=== PATIENT | female | born 1990 | race Caucasian/White ===

== ENCOUNTER 2017-02-24 03:05 | Emergency (ER) | payer BC ==
[2017-02-24] MEDS ORDERED: Pantoprazole IV* 40 MG IV ONE (03:33)
[2017-02-24] MEDS ORDERED: Ondansetron INJ* 2 MG/ML VIAL IV ONE (03:33)
[2017-02-24] MEDS ORDERED: NS 0.9% 1000 ML* 1,000 ML IV ONE (03:33)
[2017-02-24 04:04] LABS: Hematocrit 38 % (35-47); Hemoglobin 12.8 g/dl (12.0-16.0); Mean Corpuscular HGB Conc 34 g/dl (31-36); Mean Corpuscular Hemoglobin 29 pg (27-31); Mean Corpuscular Volume 86 fL (80-97); Mean Platelet Volume 10 um3 (7.4-10.4); Red Cell Distribution Width 14 % (10.5-15); White Blood Count 10.2 10^3/ul (3.5-10.8)
[2017-02-24 04:07] LABS: ALT 13 U/L (7-52); AST 12 U/L (13-39); Albumin 4.5 g/dL (3.2-5.2); Alkaline Phosphatase 52 U/L (34-104); Anion Gap 8 mmol/L (2-11); BUN/Creatinine Ratio 26.8 (8-20); Blood Urea Nitrogen 19 mg/dL (6-24); CO2 Carbon Dioxide 27 mmol/L (22-32); Calcium 9.8 mg/dL (8.6-10.3); Chloride 102 mmol/L (101-111); EGFR Non-African American 98.7 (>60); Globulin 3.3 g/dL (2-4); Glucose 173 mg/dL (70-100); Lipase 15 U/L (11.0-82.0); Potassium 4.1 mmol/L (3.5-5.0); Sodium 137 mmol/L (133-145); Total Protein 7.8 g/dL (6.4-8.9)
[2017-02-24] MEDS ORDERED: Iohexol 300* (CONTRAST) 10 ML SDV IV ONE (04:19)
[2017-02-24 05:38] LABS: Urine Bilirubin Negative (Negative); Urine Glucose Negative (Negative); Urine Nitrite Negative (Negative)
[2017-02-24 05:58] VITALS: BP 89/55
--- NOTE | 2017-02-24 09:06 | RAD ---
INDICATION: Heartburn worse than normal. COMPARISON: February 24, [address] TECHNIQUE: Dual energy PA and routine lateral views of the chest were obtained. REPORT: Clear lungs and pleural spaces. Negative for pneumothorax. The heart, pulmonary vasculature, and mediastinal contours are unremarkable. Negative for free air beneath the diaphragm. Unremarkable osseous structures and soft tissue contours. IMPRESSION: No acute cardiopulmonary process evident.
--- NOTE | 2017-02-24 09:17 | RAD ---
INDICATION: RIGHT upper and lower quadrant abdominal pain. COMPARISON: No relevant prior exams available on the [facility] [place] for comparison. TECHNIQUE: Multidetector CT images were obtained from the lung bases to the ischial tuberosities with 100 mL Omnipaque 300 IV and oral contrast. Multiplanar reformation. REPORT: Unremarkable visualized inferior thorax. Decreased density of the liver consistent with fatty infiltration with focal sparing at the gallbladder fossa. Mildly distended gallbladder. Negative for biliary dilatation. Unremarkable pancreas and spleen. Negative for CT abnormality of the upper GI, small bowel, infra cecal appendix, colon. Small volume of stool in the colon without significant rectal distention. Negative for ascites, free air, hernias. Normal adrenal glands. Unremarkable kidneys with symmetric nephrograms and pyelograms. Unremarkable ureters and largely decompressed urinary bladder. Unremarkable anteverted uterus and adnexal regions. Negative for lymphadenopathy. Normal diameter abdominal aorta and iliac arteries. Physiologic distention of the IVC. Multilevel Schmorl node endplate herniations noted. No suspicious focal osseous lesions evident. IMPRESSION: 1. Fatty infiltration of the liver. 2. Mildly distended gallbladder without additional CT abnormality. If there is clinical concern for gallbladder pathology consider ultrasound for further assessment. 3. Normal appendix documented. No pathologic process of the alimentary tract evident.
--- NOTE | 2017-02-26 02:45 | ED ---
Aggie Billy Edward, scribed for Austin Ray on 02/24/17 at 0321 . Complex/Multi-Sys Presentation - HPI Summary HPI Summary: 27 y/o female presents to the ED c/o ABD pain described as GERD-like starting at 19:00 yesterday. The pain is located in the epigastric region. The pt c/o of a sharp CP in the mid-sternal region; this is typical when the pt has episodes of GERD. The symptoms are not aggravated or alleviated with anything. Pt took Tums earlier last night to treat her symptoms. Pt has also vomited 3x in the past two days. Associated sx: nausea. Pt also c/o of chronic back pain. PMHx GERD, is prescribed zantac BID, took it yesterday. - History Of Current Complaint Chief Complaint: EDNauseaVomitDiarrh Hx Obtained From: Patient Onset/Duration: Lasting Days, Still Present Location: Pain At: - epigastric region Character: Sharp - CP Associated Signs And Symptoms: Positive: Chest Pain, Nausea, Vomiting, Abdominal Pain, Back Pain - chronic - Allergies/Home Medications Allergies/Adverse Reactions: Allergies Allergy/AdvReac Type Severity Reaction Status Date / Time Sulfa Antibiotics Allergy Unknown Unknown Verified 02/24/17 03:17 Reaction Details PMH/Surg Hx/FS Hx/Imm Hx Previously Healthy: No GI History: Reports: Hx Gastroesophageal Reflux Disease Musculoskeletal History: Reports: Hx Scoliosis Psychiatric History: Denies: Other Psychiatric Issues/Disorders Infectious Disease History: No Infectious Disease History: Denies: Traveled Outside the [place] in Last 30 Days - Family History Known Family History: Negative: Cardiac Disease, Hypertension, Diabetes - Social History Lives: With Family Alcohol Use: None Hx Substance Use: No Substance Use Type: Reports: None Hx Tobacco Use: No Smoking Status (MU): Never Smoked Tobacco Review of Systems Constitutional: Negative Eyes: Negative ENT: Negative Positive: Chest Pain - sharp Respiratory: Negative Positive: Abdominal Pain - epigastric, Vomiting - 3x, Nausea Genitourinary: Negative Positive: Arthralgia - chronic back pain Skin: Negative Neurological: Negative Psychological: Normal All Other Systems Reviewed And Are Negative: Yes Physical Exam Triage Information Reviewed: Yes Vital Signs On Initial Exam: Initial Vitals Temp Pulse Resp BP Pulse Ox 98.4 F 67 14 105/77 99 02/24/17 03:12 02/24/17 03:12 02/24/17 03:12 02/24/17 03:12 02/24/17 03:12 Vital Signs Reviewed: Yes Appearance: Positive: Well-Appearing, No Pain Distress Skin: Positive: Warm, Skin Color Reflects Adequate Perfusion, Dry Head/Face: Positive: Normal Head/Face Inspection Eyes: Positive: EOMI, WILIAN Neck: Positive: Supple, Nontender Respiratory/Lung Sounds: Positive: Clear to Auscultation, Breath Sounds Present Cardiovascular: Positive: RRR, Pulses are Symmetrical in both Upper and Lower Extremities Abdomen Description: Positive: Soft, Other: - Tender @ RUQ epigastric region Bowel Sounds: Positive: Present Musculoskeletal: Positive: Normal, Strength/ROM Intact Neurological: Positive: Normal, Sensory/Motor Intact, Alert, Oriented to Person Place, Time Diagnostics - Vital Signs Vital Signs Temp Pulse Resp BP Pulse Ox 02/24/17 03:12 98.4 F 67 14 105/77 99 - Laboratory Result Diagrams: 02/24/17 03:40 02/24/17 03:40 Lab Statement: Any lab studies that have been ordered have been reviewed, and results considered in the medical decision making process. - Radiology CXR Xray Interpretation: No Acute Changes Radiology Interpretation Completed By: ED Physician - CT ABD/PEL CT CT Interpretation: No Acute Changes - NO BOWEL OBSTRUCTION, FREE AIR OR FREE FLUID. NORMAL APPENDIX VISUALIZED. NEGATIVE FOR COLITIS OR DIVERTICULITIS. GALLBLADDER IS DISTENDED. UNCERTAIN IF THERE ARE GALLSTONES. US IS MORE SENSITIVE FOR ChOLELITHISASIS/CHOLECYSTITIS. NORMAL LIVER, SPLEEN, PANCREAS, ADRENAL GLANDS, AND KIDNEYS URINARY TRACTS IN URINARY BLADDER. NO OTHER ACUTE INTRA-ABDOMINAL ABNORMALITIES. CT Interpretation Completed By: Radiologist - EKG 1 EKG Interpretation: 04:07 - SINUS RHYTHM @ 72 BPM. NO ACUTE CHANGES Re-Evaluation - Re-Evaluation 1 Re-Evaluation Time: 05:41 Comment: Discuss lab and test results. discuss plan of care Complex Multi-Symp Course/Dx Assessment/Plan: 27 y/o female presents to the ED c/o ABD pain described as GERD -like starting a couple of days ago. The pain is located in the epigastric region. The pt c/o of a sharp CP in the epigastrium; this is typical when the pt has episodes of GERD. Pt has vomited 3x in the past few days. Associated sx: nausea. Pt also c/o of chronic back pain. PMHx frequent GERD. EKG @ 04:07 - SINUS RHYTHM @ 72 BPM. NO ACUTE CHANGES. CXR NEGATIVE. ABD/PEL CT NEGATIVE FOR ACUTE PATHOLOGY. Test results without significant abnormalities. UA (-) UTI. ABD /PEL CT showed distended gallbladder and recommended US but pt does not want to wait till the morning to get an US. Pt will f/u with PCP for US. Pt will return to the ED if pain gets worse. Pt will be d/c with protonix. Most likely pt has gastritis or GERD. - Diagnoses Provider Diagnoses: Abdominal pain, GERD (gastroesophageal reflux disease), Gastritis Discharge - Discharge Plan Condition: Stable Disposition: HOME Patient Education Materials: Gastritis (ED), Gastroesophageal Reflux Disease ( ED), Abdominal Pain (ED) Referrals: [facility] [place] PHYSICIAN REFERRAL [Outside] - 3 Days (PLEASE F/U IN 2-3 DAYS) The documentation as recorded by the Aggie caputo Edward accurately reflects the service I personally performed and the decisions made by , uAstin Ray.
== END 2017-02-24 05:58 | disposition home or self-care (01) ==
LOC: ED 03:05
DX: R10.13 Epigastric pain (principal); K29.70 Gastritis, unspecified, without bleeding; M54.9 Dorsalgia, unspecified
CPT/HCPCS: 36415; 71020; 74177; 80053; 81003; 83690; 84484; 84702; 85025; 93005; 99283; J2405; Q9967

== ENCOUNTER 2017-06-07 13:00 | Emergency (ER) | payer BC ==
[2017-06-07 16:36] LABS: ABS Basophils 0 10^3/ul (0-0.2); ABS Eosinophils 0 10^3/ul (0-0.6); ABS Lymphocytes 4.1 10^3/ul (1.0-4.8); ABS Monocytes 0.6 10^3/ul (0-0.8); ABS Nucleated RBC 0 10^3/ul; Eosinophil % 0.4 % (0-6); Hematocrit 39 % (35-47); Hemoglobin 13.5 g/dl (12.0-16.0); Lymphocyte % 38.4 % (25-47); Mean Corpuscular HGB Conc 34 g/dl (31-36); Mean Corpuscular Hemoglobin 29 pg (27-31); Mean Corpuscular Volume 85 fL (80-97); Mean Platelet Volume 10 um3 (7.4-10.4); Nucleated Red Blood Cells % 0.1; Platelet Count 302 10^3/ul (150-450); Red Cell Distribution Width 14 % (10.5-15); White Blood Count 10.7 10^3/ul (3.5-10.8)
[2017-06-07 16:59] LABS: EGFR Non-African American 103.8 (>60)
--- NOTE | 2017-06-07 17:11 | RAD ---
INDICATION: Right upper quadrant pain. COMPARISON: Comparison is made with a prior CT of the abdomen and pelvis from February 24, 2017. TECHNIQUE: Multiple real-time images of the right upper quadrant were obtained. FINDINGS: There are multiple gallstones present. No gallbladder wall thickening or pericholecystic fluid is present. No positive sonographic Stratton sign was present. No intra or extrahepatic ductal distention is present. The common bile duct measured 0.4 cm in diameter. The liver is normal in size without significant focal abnormality. The pancreas is partially obscured by overlying bowel gas. The right kidney is normal in size without evidence for hydronephrosis. IMPRESSION: CHOLELITHIASIS WITHOUT EVIDENCE FOR ACUTE CHOLECYSTITIS.
[2017-06-07 18:08] VITALS: BP 103/62
--- NOTE | 2017-06-09 12:42 | ED ---
Ricky Billy Julia, scribed for Anam López MD on 06/07/17 at 1714 . Abdominal Pain/Female - HPI Summary HPI Summary: This patient is a 27 year old F presenting to [facility] with a chief complaint of waxing and waning RUQ and epigastric abdominal pain for the past 6 days. Patient reports nausea. Patient denies fever, sweats, or chills. The patient rates the pain 3/10 in severity. Symptoms aggravated by eating. Patient has had previous symptoms but recent pain is worse than usual, but is feeling better now. She has spoken with Dr. Toney about requesting to have her gallbladder removed. - History of Current Complaint Chief Complaint: EDAbdPain Stated Complaint: ABD PAIN Time Seen by Provider: 06/07/17 16:08 Hx Obtained From: Patient Onset/Duration: Lasting Days Timing: Constant Severity Initially: Moderate Severity Currently: Mild Pain Intensity: 3 Pain Scale Used: 0-10 Numeric Location: Discrete At: RUQ, Epigastric Aggravating Factor(s): Food Associated Signs and Symptoms: Positive: Nausea Allergies/Adverse Reactions: Allergies Allergy/AdvReac Type Severity Reaction Status Date / Time MS Sulfa Antibiotics Allergy Unknown Unknown Verified 02/24/17 03:17 [Sulfa Antibiotics] Reaction Details PMH/Surg Hx/FS Hx/Imm Hx Endocrine/Hematology History: Denies: Hx Diabetes Cardiovascular History: Denies: Hx Hypertension GI History: Reports: Hx Gastroesophageal Reflux Disease History: Denies: Hx Dialysis, Hx Renal Disease Musculoskeletal History: Reports: Hx Scoliosis Psychiatric History: Denies: Other Psychiatric Issues/Disorders - Immunization History Date of Tetanus Vaccine: unk Date of Influenza Vaccine: none Infectious Disease History: No Infectious Disease History: Denies: Traveled Outside the [place] in Last 30 Days - Family History Known Family History: Negative: Cardiac Disease, Hypertension, Diabetes - Social History Alcohol Use: None Hx Substance Use: No Substance Use Type: Reports: None Hx Tobacco Use: No Smoking Status (MU): Never Smoked Tobacco Review of Systems Negative: Fever, Chills Negative: Erythema Negative: Sore Throat Negative: Chest Pain Negative: Shortness Of Breath, Cough Positive: Abdominal Pain, Nausea. Negative: Vomiting Negative: dysuria, hematuria Negative: Myalgia, Edema Negative: Rash Neurological: Negative - dizziness All Other Systems Reviewed And Are Negative: Yes Physical Exam - Summary Physical Exam Summary: Constitutional: Well-developed, Well-nourished, Alert. (-) Distressed Skin: Warm, Dry HENT: Normocephalic; Atraumatic Eyes: Conjunctiva normal Neck: Musculoskeletal ROM normal neck. (-) JVD, (-) Stridor, (-) Tracheal deviation Cardio: Rhythm regular, rate normal, Heart sounds normal; Intact distal pulses; The pedal pulses are 2+ and symmetric. Radial pulses are 2+ and symmetric. (-) Murmur Pulmonary/Chest wall: Effort normal. (-) Respiratory distress, (-) Wheezes, (-) Rales Abd: Soft, (+) mild RUQTenderness, (-) Distension, (-) Guarding, (-) Rebound Musculoskeletal: (-) Edema Lymph: (-) Cervical adenopathy Neuro: Alert, Oriented x3 Psych: Mood and affect Normal Triage Information Reviewed: Yes Vital Signs On Initial Exam: Initial Vitals Temp Pulse Resp BP Pulse Ox 98.8 F 80 18 111/70 100 06/07/17 13:17 06/07/17 13:17 06/07/17 13:17 06/07/17 13:17 06/07/17 13:17 Vital Signs Reviewed: Yes Diagnostics - Vital Signs Vital Signs Temp Pulse Resp BP Pulse Ox 06/07/17 16:10 114/60 06/07/17 13:17 98.8 F 80 18 111/70 100 - Laboratory Result Diagrams: 06/07/17 16:10 06/07/17 16:10 Lab Statement: Any lab studies that have been ordered have been reviewed, and results considered in the medical decision making process. - Additional Comments Diagnostic Additional Comments: Gallbladder US reveals: CHOLELITHIASIS WITHOUT EVIDENCE FOR ACUTE CHOLECYSTITIS. ED Physician has reviewed this report. Abdominal Pain Fem Course/Dx - Course Course Of Treatment: Patient presents with waxing and waning RUQ and epigastric abdominal pain for the past 6 days. Patient reports nausea. Patient denies fever , sweats, or chills. Symptoms aggravated by eating. Abdominal US reveals cholelythisis. Pt is dischared with dx of gallstones and is instructed to follow up with Dr. Toney in the next 2-3 days. - Diagnoses Provider Diagnoses: Gallstones Discharge - Discharge Plan Condition: Stable Disposition: HOME Prescriptions: traMADol TAB* [Ultram*] 50 mg PO Q6HR PRN #12 tab MDD 4 PRN Reason: Pain - Moderate To Severe Patient Education Materials: Gallstones (ED), Low Fat Diet (ED) Referrals: Leroy Toney MD [Medical Doctor] - 2 Days Additional Instructions: RETURN TO THE EMERGENCY DEPARTMENT FOR CHANGING OR WORSENING SYMPTOMS. The documentation as recorded by the Ricky caputo Julia accurately reflects the service I personally performed and the decisions made by , Anam López MD.
== END 2017-06-07 18:04 | disposition home or self-care (01) ==
LOC: ED 13:00
DX: K80.20 Calculus of gallbladder without cholecystitis without obstruction (principal); Z88.1 Allergy status to other antibiotic agents; Z88.2 Allergy status to sulfonamides
CPT/HCPCS: 36415; 76705; 80053; 83605; 83690; 85025; 86140; 99283

== ENCOUNTER 2017-06-20 13:15 | Day surgery (SDC) | payer BC ==
[~2017-06-20 13:15] MED LIST: Buffered Lidocaine 0.9% SYRIN* 5 ML/SYR SYRINGE INTRADERM ONE; DiMENhydriNATE IV* 50 MG/ML VIAL IV PUSH PRN; Famotidine IV* 10 MG/ML 2 ML (20 mg) IV ONE; Morphine INJ* 2 MG/ML 1 ML CARPUJECT IV PRN; Naloxone* 0.4 MG/ML 1 ML VIAL IV PRN; PROCHLORPERAZINE INJ 5 MG/ML 2 ML VIAL IV PRN; Scopolamine 1.5 mg* PATCH TRANSDERM PRN; fentaNYL* 50 MCG/ML 2 ML VIAL (100 MCG VIAL) IV PRN; oxyCODONE/Acetamin 5/325 MG* TAB PO PRN
[2017-06-20] MEDS ORDERED: ceFAZolin 2 GM in 100 MLS NS (*) BAG IVPB ONE (13:25)
[2017-06-20] MEDS ORDERED: Famotidine IV* 10 MG/ML 2 ML (20 mg) ONE (13:25)
[2017-06-20] MEDS ORDERED: Ketorolac INJ* 30 MG/ML 1 ML VIAL ONE (13:25)
[2017-06-20] MEDS ORDERED: Buffered Lidocaine 0.9% SYRIN* 5 ML/SYR SYRINGE ONE (13:25)
[2017-06-20] MEDS ORDERED: Atracurium* 10 MG/ML 10 ML VIAL ONE (14:10)
[2017-06-20] MEDS ORDERED: KETAMINE HCL* 50 MG/ML 10 ML VIAL ONE (14:10)
[2017-06-20] MEDS ORDERED: fentaNYL* 50 MCG/ML 2 ML VIAL (100 MCG VIAL) ONE (14:10)
[2017-06-20] MEDS ORDERED: Midazolam* 1 MG/ML 10 ML VIAL (10 MG) ONE (14:10)
[2017-06-20] MEDS ORDERED: Bupivacaine 0.25% SDV* 30 ML ONE (14:34)
[2017-06-20] MEDS ORDERED: PROCHLORPERAZINE INJ 5 MG/ML 2 ML VIAL ONE ×2 (14:55→16:21)
[2017-06-20] MEDS ORDERED: Dexamethasone IV* 4 MG/ML 1 ML (4 MG) ONE (14:55)
[2017-06-20] MEDS ORDERED: Propofol* 10 MG/ML 20 ML BTL IV PUSH ONE (14:55)
[2017-06-20] MEDS ORDERED: Ondansetron INJ* 2 MG/ML VIAL ONE ×2 (14:55→18:50)
[2017-06-20] MEDS ORDERED: Neostigmine Methylsulfate* 2 MG/2 ML SYRINGE ONE (14:55)
[2017-06-20] MEDS ORDERED: Lidocaine 2% PF * 5 ML VIAL ONE (14:55)
[2017-06-20] MEDS ORDERED: Glycopyrrolate IV* 0.2 MG/ML 1 ML VIAL ONE ×2 (14:55→15:09)
[2017-06-20] MEDS ORDERED: EPHEDrine (Pressors)* 50 MG/ML VIAL ONE (15:09)
--- NOTE | 2017-06-20 15:54 | OP ---
Operative Report - Blank - Operative Report Date of Operation: 06/20/17 Note: Pre-op dx: Cholelithias Post-op dx: Cholethilias Procedure: Laproscopic Cholecystectomy Surgeon: Assist:BASHIR Meyer; KO May Anesthesia: General ET EBL: less than 50 ml Fluids: LR 1500 Specimen: Gallbladder Findings: see dictation Drains: None
[2017-06-20] MEDS ORDERED: Scopolamine 1.5 mg* PATCH ONE (16:21)
[2017-06-20] MEDS ORDERED: DiMENhydriNATE IV* 50 MG/ML VIAL ONE (16:50)
[2017-06-20] MEDS ORDERED: Ondansetron INJ* 2 MG/ML VIAL IV ONE (18:39)
[2017-06-20] MEDS ORDERED: Promethazine INJ(RESTRICTED)* 25 MG/ML 1 ML VIAL IV ONE (18:42)
[2017-06-20] MEDS ORDERED: NS 0.9% 500 ML* 500 ML IV SCH (19:00)
[2017-06-20 19:47] VITALS: BP 127/92
--- NOTE | 2017-06-21 12:53 | OP ---
CC: Dr. Leroy Toney; Dr. Machuca OPERATIVE REPORT: DATE OF OPERATION: 06/20/17 DATE OF : 89 SURGEON: Leroy Toney MD. REGULATORY AFFAIRS COORDINATOR: RAMA Meyer. ANESTHESIOLOGIST: Dr. Corona. ANESTHESIA: General anesthetic, local infiltration. PRE-OP DIAGNOSIS: Biliary colic. POST-OP DIAGNOSIS: Biliary colic. OPERATIVE PROCEDURE: Laparoscopic cholecystectomy. DESCRIPTION OF PROCEDURE: The patient was supine on the operating room table. After adequate general anesthetic, compression stockings, Airam Hugger warmer and intravenous antibiotics, the abdomen was p repped with antiseptic, draped in sterile fashion. Local infiltrative anesthesia was administered. Small right upper quadrant incision was created. Blunt port cannula was placed under direct vision w ith the Visiport cannula. Insufflation was carried out with carbon dioxide. Additional cannulae 5 mm anterior axillary line and supraumbilical and 12 mm subxiphoid were placed under direct vision. The gallbladder was tented upward. The areolar tissue was taken down off of the cystic duct and cystic a rtery, which were readily clipped and divided. The gallbladder was taken off the liver bed with a sc issor cautery. There was no spillage. The operative field was in good condition and the gallbladder was removed through the subxiphoid port. Irrigation and suction was carried out, everything was in good condition. Hemostasis was good. Cannulae were removed. Pneumoperitoneum was allowed to escape . The skin was closed with 5-0 Vicryl followed by Steri-Strips. She tolerated the procedure well, w as awakened and brought to recovery in good condition. No complications. No drains. Pathologic spec imen is gallbladder. Sponge and instrument counts correct. Estimated blood less is less than 20 mL. [id number]/[facility] #: [id number]
[2017-06-23] MEDS ORDERED: Scopolamine PATCH Remove* 1 NOTE MISC PATCH OFF ONE (06:02)
== END 2017-06-20 20:08 | disposition home or self-care (01) ==
LOC: OR 13:15
PROVIDERS: ATTEND Surgery
DX: K80.10 Calculus of gallbladder with chronic cholecystitis without obstruction (principal); K21.9 Gastro-esophageal reflux disease without esophagitis
CPT/HCPCS: 36415; 81025; 84702; 88304; A9270-GY; J0780; J1100; J1240; J1885; J2250; J2405; J2550; J2704; J3010